=== PATIENT | female | born 1940 | race Two or more races ===

== ENCOUNTER 2021-03-21 01:23 | Emergency (ER) | payer OTHER ==
[~2021-03-21] VITALS: Ht 157.5 cm; Wt 56.7 kg
[2021-03-21] MEDS ORDERED: COZAAR25 MG (01:39)
== END 2021-03-21 13:34 | disposition home or self-care (01) ==
LOC: ER 01:23
DX: R14.0 Abdominal distension (gaseous) (principal); K59.09 Other constipation